=== PATIENT | female | born 1970 | race Caucasian/White ===

== ENCOUNTER 2016-12-14 18:33 | Emergency (ER) | payer MEDICAID ==
[~2016-12-14] VITALS: Ht 167.6 cm; Wt 92.5 kg
[2016-12-14 18:45] VITALS: BP 103/65
[2016-12-14 19:22] LABS: BASOPHILS # (AUTO) 0.1 K/uL (0.00-0.22); BASOPHILS % (AUTO) 1.7 % (0.0-2.0); EOSINOPHILS # (AUTO) 0.1 K/uL (0-0.4); EOSINOPHILS % (AUTO) 1.2 % (0.0-4.0); HEMATOCRIT 39.3 % (36-48); HEMOGLOBIN 13.3 g/dL (12.0-16.0); LYMPHOCYTES # (AUTO) 2.8 K/uL (2.5-16.5); MEAN CORPUSCULAR HEMOGLOBIN 31 pg (27-31); MEAN CORPUSCULAR HGB CONC 34 g/dL (33-37); MEAN CORPUSCULAR VOLUME 92 fL (80-94); MONOCYTES # (AUTO) 0.5 K/uL (0.8-1.0); MONOCYTES % (AUTO) 6.2 % (1.7-9.3); NEUTROPHILS # (AUTO) 4.9 K/uL (1.8-7.7); NEUTROPHILS % (AUTO) 56.9 % (42.2-75.2); PLATELET COUNT (AUTO) 219 K/uL (140-450); RED BLOOD CELL COUNT(AUTO) 4.28 MIL/uL (4.20-5.40); RED CELL DISTRIBUTION WIDTH 12.2 % (11.6-13.7); WHITE BLOOD COUNT (AUTO) 8.4 K/uL (4.8-10.8)
[2016-12-14 19:28] LABS: BILIRUBIN,URINE NEGATIVE (NEGATIVE); BLOOD, URINE TRACE-I (NEGATIVE); COLOR,URINE YELLOW (YELLOW); LEUKOCYTE ESTERASE ,URINE 1+ (NEGATIVE); NITRITE, URINE NEGATIVE (NEGATIVE); PH,URINE 6.5 (5.0-9.0); PROTEIN,URINE NEGATIVE (NEGATIVE); UGLUCOSE NEGATIVE (NEGATIVE); UROBILINOGEN,URINE 0.2 EU/dL (0.2 - 1)
[2016-12-14 19:30] LABS: APPEARANCE,URINE HAZY (CLEAR)
[2016-12-14 19:31] LABS: ANION GAP 10.7 (8-16); CARBON DIOXIDE 29.3 mmol/L (21-32); CREATININE 0.8 mg/dL (0.6-1.3)
--- NOTE | 2016-12-14 19:34 | NUR ---
Patient ambulated to bed 04 from Ultrasound.
[2016-12-14 19:36] LABS: ALBUMIN 3.8 g/dL (3.4-5.0); TOTAL BILIRUBIN 0.4 mg/dL (0.0-1.0); TOTAL PROTEIN, SERUM 7.3 g/dL (6.4-8.2)
[2016-12-14 19:39] LABS: RBC,URINE 0-5 (RARE) /HPF (0-5); WBC,URINE 0-5 (RARE) /HPF (0-5)
[2016-12-14 19:40] LABS: BACTERIA,URINE 1+ /HPF (None Seen); SQUAMOUS EPITHELIAL CELL,UR 4-10 (MOD) /LPF (0-3 (FEW))
[2016-12-14] MEDS ORDERED: KETOROLAC 30 MG/ML VIAL IVP ONE (20:35)
[2016-12-14] MEDS ORDERED: KETOROLAC 60 MG/2 ML VIAL IM ONE (20:40)
--- NOTE | 2016-12-14 20:42 | NUR ---
Dr. Carrizales evaluating patient at bedside.
--- NOTE | 2016-12-14 21:18 | NUR ---
Patient discharged with v/s stable. Written and verbal after care instructions given and explained. Patient alert, oriented and verbalized understanding of instructions. Ambulatory with steady gait. All questions addressed prior to discharge. ID band removed. Patient advised to follow up with PMD. Rx of ZOFRAN 4 MG, MOTRIN 600 MG given. Patient educated on indication of medication including possible reaction and side effects. Opportunity to ask questions provided and answered.
[2016-12-14 21:35] VITALS: BP 108/65
--- NOTE | 2016-12-14 21:37 | NUR ---
46Y/F PATIENT PRESENTS TO ED WITH C/O ABDOMINAL PAIN X 1 WK . PT STATES ABDOMINAL PAIN WITH N/V. NO MEDICAL HX. . DENIES N/V/D; SKIN IS PINK/WARM/DRY; AAOX4 WITH EVEN AND STEADY GAIT; LUNGS CLEAR BL; HR EVEN AND REGULAR; PT DENIES ANY FEVER, CP, SOB, OR COUGH AT THIS TIME; PATIENT STATES PAIN OF 7/10 AT THIS TIME; VSS; PATIENT POSITIONED FOR COMFORT; HOB ELEVATED; BEDRAILS UP X2; BED DOWN. ER MD MADE AWARE OF PT STATUS.
--- NOTE | 2016-12-14 21:37 | NUR ---
Note undone in EDM - 12/14/16 at 2138 by [facility] 46Y/F PATIENT PRESENTS TO ED WITH C/O ABDOMINAL PAIN X 1 WK . PT STATES ABDOMINAL PAIN WITH N/V. NO MEDICAL HX. . DENIES N/V/D; SKIN IS PINK/WARM/DRY; AAOX4 WITH EVEN AND STEADY GAIT; LUNGS CLEAR BL; HR EVEN AND REGULAR; PT DENIES ANY FEVER, CP, SOB, OR COUGH AT THIS TIME; PATIENT STATES PAIN OF 7/10 AT THIS TIME; VSS; PATIENT POSITIONED FOR COMFORT; HOB ELEVATED; BEDRAILS UP X2; BED DOWN. ER MADE AWARE OF PT STATUS.
== END 2016-12-14 21:18 | disposition home or self-care (01) ==
LOC: MED 18:33
DX: K80.70 Calculus of gallbladder and bile duct without cholecystitis without obstruction (principal)
CPT/HCPCS: 36415; 76705; 80053; 81001; 83690; 85025; 87086; 96372; 99285; J1885

== ENCOUNTER 2017-04-04 18:54 | Emergency (ER) | payer MEDICAID ==
[~2017-04-04] VITALS: Ht 167.6 cm; Wt 95.3 kg
[2017-04-04 19:22] VITALS: BP 111/52
--- NOTE | 2017-04-04 20:05 | NUR ---
PT TAKEN TO BED 2
--- NOTE | 2017-04-04 20:06 | NUR ---
PATIENT IS A 47 Y/O FEMALE WHO PRESENTS TO THE ED C/O ABD PAIN. PT STATES, "I HAVE BEEN HAVING THIS PAIN IN MY STOMACH AND CHEST AND IT HURTS." PT REPORTS 8/10 ACHING PAIN ON THE UPPER EPIGASTRIC AREA AND CHEST AREA THAT RADIATES TO THE BILATERAL ARMS. PT DENIES SOB, REPORTS NAUSEA, DENIES VOMITING/DIARRHEA. PT AAOX4, RR EVEN/UNLABORED. PT REPOSITIONED FOR COMFORT, BED IN LOWEST POSITION. ER MD DR. RODRIGUEZ NOTIFIED. WILL CONTINUE TO MONITOR.
--- NOTE | 2017-04-04 20:22 | NUR ---
Dr. Sigala evaluating patient at bedside.
[2017-04-04] MEDS ORDERED: MORPHINE SULFATE 4 MG/ML SYR IVP ONE (20:30)
[2017-04-04] MEDS ORDERED: ONDANSETRON 4 MG/2 ML VIAL IVP ONE (20:30)
[2017-04-04] MEDS ORDERED: NACL 0.9% 1,000 ML IV ONE (20:30)
[2017-04-04] MEDS ORDERED: ASPIRIN 325 MG TAB PO ONE (20:30)
--- NOTE | 2017-04-04 20:35 | NUR ---
X-Ray at bedside.
[2017-04-04 20:54] LABS: APPEARANCE,URINE CLEAR (CLEAR); BILIRUBIN,URINE NEGATIVE (NEGATIVE); BLOOD, URINE TRACE-I (NEGATIVE); COLOR,URINE YELLOW (YELLOW); LEUKOCYTE ESTERASE ,URINE NEGATIVE (NEGATIVE); NITRITE, URINE NEGATIVE (NEGATIVE); UGLUCOSE NEGATIVE (NEGATIVE)
[2017-04-04 20:54] LABS: BASOPHILS # (AUTO) 0.2 K/uL (0.00-0.22); EOSINOPHILS # (AUTO) 0.1 K/uL (0-0.4); EOSINOPHILS % (AUTO) 0.8 % (0.0-4.0); HEMATOCRIT 40.8 % (36-48); HEMOGLOBIN 13.6 g/dL (12.0-16.0); LYMPHOCYTES # (AUTO) 2.7 K/uL (2.5-16.5); LYMPHOCYTES % (AUTO) 30.1 % (20.5-51.1); MEAN CORPUSCULAR HEMOGLOBIN 31 pg (27-31); MEAN CORPUSCULAR HGB CONC 33 g/dL (33-37); MEAN CORPUSCULAR VOLUME 92 fL (80-94); MONOCYTES # (AUTO) 0.5 K/uL (0.8-1.0); MONOCYTES % (AUTO) 5.3 % (1.7-9.3); NEUTROPHILS # (AUTO) 5.4 K/uL (1.8-7.7); NEUTROPHILS % (AUTO) 61.8 % (42.2-75.2); PLATELET COUNT (AUTO) 231 K/uL (140-450); RED BLOOD CELL COUNT(AUTO) 4.45 MIL/uL (4.20-5.40); RED CELL DISTRIBUTION WIDTH 12.8 % (11.6-13.7); WHITE BLOOD COUNT (AUTO) 8.9 K/uL (4.8-10.8)
[2017-04-04 21:03] LABS: RBC,URINE 0-5 (RARE) /HPF (0-5); WBC,URINE 0-5 (RARE) /HPF (0-5)
[2017-04-04 21:04] LABS: ANION GAP 4.8 (8-16); CARBON DIOXIDE 29.3 mmol/L (21-32); CREATININE 0.7 mg/dL (0.6-1.3); POTASSIUM 3.1 mmol/L (3.5-5.1)
[2017-04-04 21:10] LABS: ALBUMIN 3.8 g/dL (3.4-5.0); TOTAL BILIRUBIN 0.3 mg/dL (0.0-1.0)
--- NOTE | 2017-04-04 21:20 | NUR ---
US AT BEDSIDE.
[2017-04-04] MEDS ORDERED: POTASSIUM CHLORIDE 20% 40 MEQ/15 ML UDC PO ONE (21:40)
[2017-04-04 22:10] VITALS: BP 121/68
--- NOTE | 2017-04-04 22:10 | NUR ---
IV removed, catheter intact and site benign. Applied folded 4x4 gauze and tape to stop bleeding.
--- NOTE | 2017-04-04 22:12 | NUR ---
Patient discharged with v/s stable. Written and verbal after care instructions given and explained. Patient verbalized understanding. Ambulatory with steady gait. All questions addressed prior to discharge. Advised to follow up with PMD.
== END 2017-04-04 22:12 | disposition home or self-care (01) ==
LOC: MED 18:54
DX: K80.20 Calculus of gallbladder without cholecystitis without obstruction (principal); E87.6 Hypokalemia; R07.89 Other chest pain; R03.0 Elevated blood-pressure reading, without diagnosis of hypertension; J45.909 Unspecified asthma, uncomplicated
CPT/HCPCS: 36415; 71010; 76700; 80053; 81001; 81025; 83690; 84484; 85025; 93005; 96361; 96374; 96375; 99285; J2270; J2405; J7030; Q0092

== ENCOUNTER 2017-08-10 11:27 | Emergency (ER) | payer MEDICAID ==
[~2017-08-10] VITALS: Ht 165.1 cm; Wt 92.5 kg
[2017-08-10 11:32] VITALS: BP 117/67
--- NOTE | 2017-08-10 11:32 | NUR ---
pt comes too er with complain of left side quadrent pain that feels better with movememnt pt states pain is 8/10 when sedentary. she has recent miscarrage with no medical follow up as reccomended back in july. pt is concerend that is what is givivng her her quadrent pain. pt denies n/v/d fever and chills and dysuria at this time.
[2017-08-10] MEDS ORDERED: KETOROLAC 60 MG/2 ML VIAL IM ONE (12:15)
--- NOTE | 2017-08-10 12:15 | NUR ---
pt taken for an ultrasound at this time
[2017-08-10 13:16] LABS: APPEARANCE,URINE CLEAR (CLEAR); BILIRUBIN,URINE NEGATIVE (NEGATIVE); BLOOD, URINE TRACE-I (NEGATIVE); COLOR,URINE YELLOW (YELLOW); LEUKOCYTE ESTERASE ,URINE NEGATIVE (NEGATIVE); NITRITE, URINE NEGATIVE (NEGATIVE); UGLUCOSE NEGATIVE (NEGATIVE)
[2017-08-10 13:42] LABS: RBC,URINE 0-5 (RARE) /HPF (0-5); WBC,URINE 0-5 (RARE) /HPF (0-5)
[2017-08-10] MEDS ORDERED: cefTRIAXone 250 MG in LIDOCAINE MPF 1% - **ER/OR** 0.9 ML IM ONE (15:35)
[2017-08-10 16:28] VITALS: BP 103/63
--- NOTE | 2017-08-10 16:28 | NUR ---
Patient discharged with v/s stable. Written and verbal after care instructions given and explained. Patient alert, oriented and verbalized understanding of instructions. Ambulatory with steady gait. All questions addressed prior to discharge. ID band removed. Patient advised to follow up with PMD. Rx of NAPROSYN DOXYCYLINE TRAMADOL given. Patient educated on indication of medication including possible reaction and side effects. Opportunity to ask questions provided and answered.
[2017-08-12 06:17] LABS: CHLAMYDIA TRACHOMATIS AMP DNA Negative (Negative)
== END 2017-08-10 16:28 | disposition home or self-care (01) ==
LOC: MED 11:27
DX: N70.91 Salpingitis, unspecified (principal); N83.201 Unspecified ovarian cyst, right side; J45.909 Unspecified asthma, uncomplicated
CPT/HCPCS: 36415; 76830; 81001; 81025; 87491; 93325; 96372; 99285; J0696; J1885; J2001

== ENCOUNTER 2017-10-11 08:45 | Emergency (ER) | payer MEDICAID ==
[~2017-10-11] VITALS: Ht 162.6 cm; Wt 92.5 kg
[2017-10-11 08:52] VITALS: BP 98/65
--- NOTE | 2017-10-11 09:05 | NUR ---
PT TO RM 8 WITH STEADY GAIT. GAVE REPORT TO JL URIBE.
--- NOTE | 2017-10-11 09:08 | NUR ---
47/F BIB FAMILY with c/o heavy vaginal bleeding since yesterday, progressively getting worse. Patient states menstruation started yesterday. Patient states changing pad [id number]. Patient also reports of dizziness, HEADACHE and 9/10 cramping pain bl lower abd. DENIES N/V/D; SKIN IS PINK/WARM/DRY; AAOX4 WITH EVEN AND STEADY GAIT; LUNGS CLEAR BL; HR EVEN AND REGULAR. PATIENT STATES PAIN OF 9/10 AT THIS TIME, PATIENT POSITIONED FOR COMFORT; HOB ELEVATED; BEDRAILS UP X2; BED DOWN. ER MD MADE AWARE OF PT STATUS.
--- NOTE | 2017-10-11 09:36 | NUR ---
LAB AT BEDSIDE.
--- NOTE | 2017-10-11 09:49 | NUR ---
US AT BEDSIDE.
[2017-10-11 10:16] LABS: BASOPHILS % (AUTO) 0.3 % (0.0-2.0); EOSINOPHILS % (AUTO) 0.4 % (0.0-4.0); HEMOGLOBIN 13.1 g/dL (12.0-16.0); LYMPHOCYTES # (AUTO) 1.5 K/uL (2.5-16.5); LYMPHOCYTES % (AUTO) 26.2 % (20.5-51.1); MEAN CORPUSCULAR HEMOGLOBIN 32 pg (27-31); MEAN CORPUSCULAR HGB CONC 34 g/dL (33-37); MEAN CORPUSCULAR VOLUME 92.4 fL (80-94); MONOCYTES # (AUTO) 0.3 K/uL (0.8-1.0); MONOCYTES % (AUTO) 5.2 % (1.7-9.3); NEUTROPHILS # (AUTO) 3.9 K/uL (1.8-7.7); NEUTROPHILS % (AUTO) 67.9 % (42.2-75.2); PLATELET COUNT (AUTO) 198 K/uL (140-450); RED BLOOD CELL COUNT(AUTO) 4.12 MIL/uL (4.20-5.40); RED CELL DISTRIBUTION WIDTH 13.3 % (11.6-13.7); WHITE BLOOD COUNT (AUTO) 5.7 K/uL (4.8-10.8)
[2017-10-11 10:25] LABS: APPEARANCE,URINE HAZY (CLEAR); BILIRUBIN,URINE NEGATIVE (NEGATIVE); BLOOD, URINE 3+ (NEGATIVE); COLOR,URINE RED (YELLOW); LEUKOCYTE ESTERASE ,URINE 2+ (NEGATIVE); NITRITE, URINE POSITIVE (NEGATIVE); PH,URINE 6.5 (5.0-9.0); UGLUCOSE NEGATIVE (NEGATIVE)
[2017-10-11 10:28] LABS: PROTHROMBIN TIME 10.3 secs (10.8-13.4)
--- NOTE | 2017-10-11 10:36 | NUR ---
Patient appears to be resting comfortably in bed. Vital Signs within normal limits. Respirations even and unlabored.WILL CONTINUE TO MONITOR.
[2017-10-11 10:40] LABS: RBC,URINE TOO NUMEROUS TO COUN /HPF (0-5)
[2017-10-11 11:52] VITALS: BP 108/54
--- NOTE | 2017-10-11 11:52 | NUR ---
Patient discharged with v/s stable. Written and verbal after care instructions given and explained. Patient alert, oriented and verbalized understanding of instructions. Ambulatory with steady gait. All questions addressed prior to discharge. ID band removed. Patient advised to follow up with PMD. Rx of TORADOL given. Patient educated on indication of medication including possible reaction and side effects. Opportunity to ask questions provided and answered.
--- NOTE | 2017-10-11 11:53 | NUR ---
NOTIFIED OF ABNORMAL URINE RESULTS---PT IS ASYMPTOMATIC FOR DYSURIA AT THIS TIME- PT WILL F/U WITH PMD / MEDIC TECHNICIAN THIS WEEK
== END 2017-10-11 11:52 | disposition home or self-care (01) ==
LOC: MED 08:45
DX: N94.6 Dysmenorrhea, unspecified (principal); J45.909 Unspecified asthma, uncomplicated
CPT/HCPCS: 36415; 76830; 81001; 81025; 84702; 85025; 85610; 85730; 86900; 86901; 87086; 99285; Q0092

== ENCOUNTER 2018-01-14 21:40 | Inpatient (IN) | payer MEDICAID ==
[~2018-01-14] VITALS: Ht 162.6 cm; Wt 94.8 kg
[2018-01-14 21:50] VITALS: BP 125/65
--- NOTE | 2018-01-14 21:50 | NUR ---
PATIENT TRIAGED; VSS; SENT TO ER LOBBY.
--- NOTE | 2018-01-14 22:59 | NUR ---
PATIENT TO ER BED 12.
--- NOTE | 2018-01-14 23:15 | NUR ---
47/F CAME IN WITH SIGNIFICANT OTHER, C/O 02/09 SUDDEN ONSET SHARP RUQ AND EPIGASTRIC PAIN, X2 HRS. PT REPORTS N/V. DENIES FEVER, DYSURIA, DIARRHEA. BS ACTIVE X4, ABD SOFT ROUND TENDER TO RUQ AND EPIGASTRIC AREA. LUNG SOUNDS CLEAR BL. AOX4, AMBULATORY, RR EVEN AND SLIGHT LABORED, IN MILD DISTRESS WITH FACIAL GRIMACING AND RESTLESSNESS. PLACED ON MONITOR. ER MD MADE AWARE. HX GALLSTONES (DX 2 YEARS AGO, LAST EPISODE 6 MONTHS AGO)
[2018-01-14] MEDS ORDERED: MORPHINE SULFATE 4 MG/ML SYR IVP ONE (23:40)
[2018-01-14] MEDS ORDERED: ONDANSETRON 4 MG/2 ML VIAL IVP ONE (23:40)
[2018-01-14] MEDS ORDERED: DICYCLOMINE HCL LIQUID 20 MG, ALUMINUM HYD/MAG/SIMETHICONE 30 ML, LIDOCAINE VISCOUS 2% ... PO ONE ×3 (23:40)
[2018-01-14] MEDS ORDERED: NACL 0.9% 1,000 ML IV ONE (23:40)
[2018-01-15 00:12] LABS: BASOPHILS % (AUTO) 0.3 % (0.0-2.0); EOSINOPHILS # (AUTO) 0.1 K/uL (0-0.4); EOSINOPHILS % (AUTO) 0.6 % (0.0-4.0); HEMATOCRIT 39.1 % (36-48); HEMOGLOBIN 13.4 g/dL (12.0-16.0); LYMPHOCYTES # (AUTO) 2.9 K/uL (2.5-16.5); LYMPHOCYTES % (AUTO) 26.4 % (20.5-51.1); MEAN CORPUSCULAR HEMOGLOBIN 31 pg (27-31); MEAN CORPUSCULAR HGB CONC 34 g/dL (33-37); MEAN CORPUSCULAR VOLUME 91.8 fL (80-94); MONOCYTES # (AUTO) 0.6 K/uL (0.8-1.0); MONOCYTES % (AUTO) 5.8 % (1.7-9.3); NEUTROPHILS # (AUTO) 7.2 K/uL (1.8-7.7); NEUTROPHILS % (AUTO) 66.9 % (42.2-75.2); PLATELET COUNT (AUTO) 217 K/uL (140-450); RED BLOOD CELL COUNT(AUTO) 4.26 MIL/uL (4.20-5.40); RED CELL DISTRIBUTION WIDTH 13.6 % (11.6-13.7); WHITE BLOOD COUNT (AUTO) 10.8 K/uL (4.8-10.8)
[2018-01-15 00:16] LABS: APPEARANCE,URINE CLEAR (CLEAR); BILIRUBIN,URINE NEGATIVE (NEGATIVE); BLOOD, URINE TRACE-I (NEGATIVE); COLOR,URINE YELLOW (YELLOW); LEUKOCYTE ESTERASE ,URINE TRACE (NEGATIVE); NITRITE, URINE NEGATIVE (NEGATIVE); PH,URINE 6.5 (5.0-9.0); UGLUCOSE NEGATIVE (NEGATIVE)
[2018-01-15 00:19] LABS: ANION GAP 10.2 (8-16); CARBON DIOXIDE 30.4 mmol/L (21-32); CREATININE 0.8 mg/dL (0.6-1.3); POTASSIUM 3.6 mmol/L (3.5-5.1)
[2018-01-15 00:27] LABS: ALBUMIN 3.7 g/dL (3.4-5.0); TOTAL BILIRUBIN 0.5 mg/dL (0.0-1.0)
[2018-01-15 00:29] LABS: RBC,URINE 0-5 (RARE) /HPF (0-5); WBC,URINE 0-5 (RARE) /HPF (0-5)
--- NOTE | 2018-01-15 01:41 | NUR ---
PT RESTING IN BED, VS NOTED, RR EVEN AND UNLABORED, REPORTS 3/10 PAIN AT THIS TIME, ALL NEEDS MET.
[2018-01-15] MEDS ORDERED: KETOROLAC 30 MG/ML VIAL IVP ONE (03:10)
--- NOTE | 2018-01-15 04:00 | NUR ---
PT RESTING IN BED, REPORTS / RUQ/EPIGASTRIC PAIN DESPITE MED. VSS. ALL NEEDS MET. ER MD MADE AWARE
[2018-01-15] MEDS ORDERED: HYDROcodone/APAP 5/325 MG 1 TAB TAB PO PRN (04:10)
[2018-01-15] MEDS ORDERED: ALBUTEROL SULFATE/IPRATROPIU 3 ML SOL IH PRN (04:10)
[2018-01-15] MEDS ORDERED: KETOROLAC 15 MG/ML VIAL IVP PRN (04:10)
[2018-01-15] MEDS ORDERED: ONDANSETRON 4 MG/2 ML VIAL IM/IVP PRN (04:10)
[2018-01-15] MEDS ORDERED: DOCUSATE SODIUM 100 MG GELCAP PO PRN (04:10)
[2018-01-15] MEDS ORDERED: ACETAMINOPHEN 325 MG TAB PO PRN (04:10)
--- NOTE | 2018-01-15 05:00 | NUR ---
Patient will be admitted to care of DR. MCALLISTER. Admited to [facility]. Will go to [id number]. Belongings list completed. Report to RONY GOMEZ AT BEDSIDE.
--- NOTE | 2018-01-15 05:05 | NUR ---
ADMITTED A 47 Y/O FEMALE WITH CHIEF COMPLAIN OF EPIGASTRIC AND R UPPER QUADRANT PAIN X 2 DAYS. PATIENT AA0X4, AMBULATORY, COOPERATIVE. DISCUSS PLAN OF CARE. SKIN INTACT .MRSA NASAL SWAB DONE. PERSONAL BELONGINGS AT PATIENT BEDSIDE CABINET. ROUTINE ADMISSION CARE DONE AND CARRY OUT ORDERS. BED IN LOW LOCKED POSITION. CALL LIGHT WITHIN REACH. ALL NEEDS ATTENDED.
[2018-01-15] MEDS: DEXT 5% /NACL 0.9% 1,000 ML IV SCH ×3 (05:20→18:25)
[2018-01-15 05:21] LABS: PROTHROMBIN TIME 9.9 secs (10.8-13.4)
[2018-01-15 05:44] LABS: BARBITURATE, URINE NEG. ng/ml (NEG <=200); BENZODIAZEPINE, URINE NEG. ng/mL (NEG <=200); CANNABINOID, URINE NEG. ng/mL (NEG <=50)
[2018-01-15 05:46] LABS: THYROID STIMULATING HORMONE 2.59 uIU/mL (0.34-3.74)
[2018-01-15 05:59] LABS: COCAINE, URINE NEG. ng/mL (NEG <=300); OPIATE, URINE NEG. ng/mL (NEG <=2000); PHENCYCLIDINE SCREEN,URINE NEG. ng/mL (NEG <=25)
--- NOTE | 2018-01-15 07:20 | NUR ---
GAVE REPORT TO AM SHIFT RN AT BEDSIDE FOR CONTINUITY OF CARE. PATIENT IN STABLE CONDITION.
--- NOTE | 2018-01-15 07:52 | NUR ---
PATIENT WAS SLEEPING COMFORTABLY, EASILY AROUSABLE ON ROOM AIR. RESPIRATION EVEN, UNLABOR ON ROOM AIR. SKIN DRY AND WARM. IV PATENT AND INTACT. COMPLAINED OF ABDOMINAL PAIN, WILL MEDICATE PER ORDER. PLAN OF CARE WAS DISCUSSED WITH PATIENT. BED AT LOW POSITION, SIDE RAILS UP. CALL LIGHT WITHIN REACH.
--- NOTE | 2018-01-15 07:54 | NUR ---
PATIENT HAS BEEN SCREENED AND CATEGORIZED MODERATE RISK. PATIENT WILL BE SEEN WITHIN 3-5 DAYS OF ADMISSION. 01/18- [address]
[2018-01-15 08:00] VITALS: BP 98/47
[2018-01-15 08:56] LABS: WHITE BLOOD COUNT (AUTO) 5.3 K/uL (4.8-10.8)
[2018-01-15 08:57] LABS: HEMATOCRIT 35.4 % (36-48); HEMOGLOBIN 11.7 g/dL (12.0-16.0); MEAN CORPUSCULAR HEMOGLOBIN 31 pg (27-31); MEAN CORPUSCULAR HGB CONC 33 g/dL (33-37); MEAN CORPUSCULAR VOLUME 93.7 fL (80-94); PLATELET COUNT (AUTO) 190 K/uL (140-450); RED BLOOD CELL COUNT(AUTO) 3.78 MIL/uL (4.20-5.40); RED CELL DISTRIBUTION WIDTH 12.6 % (11.6-13.7)
[2018-01-15 08:58] LABS: BASOPHILS % (AUTO) 0.3 % (0.0-2.0); EOSINOPHILS % (AUTO) 0.5 % (0.0-4.0); LYMPHOCYTES # (AUTO) 1.2 K/uL (2.5-16.5); LYMPHOCYTES % (AUTO) 23.2 % (20.5-51.1); MONOCYTES # (AUTO) 0.3 K/uL (0.8-1.0); MONOCYTES % (AUTO) 6.1 % (1.7-9.3); NEUTROPHILS # (AUTO) 3.8 K/uL (1.8-7.7); NEUTROPHILS % (AUTO) 69.9 % (42.2-75.2)
[2018-01-15] MEDS: LACTOBACILLUS RHAMNOSUS GG 1 EACH CAP PO SCH (09:20)
[2018-01-15 09:32] LABS: ANION GAP 8.2 (8-16); CREATININE 0.7 mg/dL (0.6-1.3); POTASSIUM 4.2 mmol/L (3.5-5.1)
[2018-01-15 09:36] LABS: PROTHROMBIN TIME 9.6 secs (10.8-13.4)
[2018-01-15 09:38] LABS: CHOL/HDL RATIO 4.5 (1-4.5); MAGNESIUM 2.1 mg/dL (1.8-2.4); PHOSPHORUS 3.1 mg/dL (2.5-4.9)
--- NOTE | 2018-01-15 10:07 | NUR ---
PATIENT AWAKE, ALERT. RESPIRATION EVEN, UNLABOR ON ROOM AIR. NO DISTRESS NOTED AT THIS TIME. CALL LIGHT WITHIN REACH.
--- NOTE | 2018-01-15 11:38 | NUR ---
PATIENT AWAKE, ALERT. RESPIRATION EVEN, UNLABOR ON ROOM AIR. NO DISTRESS NOTED. FAMILY AT BEDSIDE. CALL LIGHT WITHIN REACH
--- NOTE | 2018-01-15 12:45 | NUR ---
PATIENT AWAKE, ALERT. RESPIRATION EVEN, UNLABOR ON ROOM AIR. NO DISTRESS NOTED. FAMILY AT BEDSIDE. CALL LIGHT WITHIN REACH
[2018-01-15] MEDS ORDERED: MORPHINE SULFATE 2 MG/ML SYR IVP PRN (13:40)
--- NOTE | 2018-01-15 14:52 | NUR ---
PATIENT IS AWAKE, ALERT. RESPIRATION EVEN, UNLABOR ON ROOM AIR. NO DISTRESS NOTED AT THIS TIME. FAMILY AT BEDSIDE. CALL LIGHT WITHIN REACH
--- NOTE | 2018-01-15 15:18 | NUR ---
PATIENT IS BEING TRANSFERRED TO [facility] FOR HIDA SCAN. PATIENT IS STABLE AT THIS TIME.
[2018-01-15 16:53] VITALS: BP 94/43
--- NOTE | 2018-01-15 18:15 | NUR ---
PATIENT AWAKE, ALERT. RESPIRATION EVEN, UNLABOR ON ROOM AIR. NO DISTRESS NOTED AT THIS TIME. FAMILY AT BEDSIDE. CALL LIGHT WITHIN REACH
--- NOTE | 2018-01-15 19:16 | NUR ---
ENDORSEMENT GIVEN TO THE STUDENT LIFE VICE PRESIDENT NURSE. PATIENT IS STABLE AT THIS TIME
--- NOTE | 2018-01-15 19:17 | NUR ---
RECEIVED REPORT FROM DAY SHIFT NURSE CECY-RN AT BEDSIDE. PT RESTING IN BED, ON ROOM AIR WITH LEFT AC 18G. DISCUSSED PLAN OF CARE AND PT VERBALIZED UNDERSTANDING. NO S/S OF RESPIRATORY DISTRESS OR DISCOMFORT NOTED AT THIS TIME. BED IN LOWEST POSITION, BED BREAKS ON AND BOTH SIDE RAILS UP. BEDSIDE TABLE AND CALL LIGHT ARE WITHIN REACH. WILL CONTINUE TO MONITOR.
[2018-01-15 20:00] VITALS: BP 94/30
--- NOTE | 2018-01-15 20:00 | NUR ---
VITAL SIGNS TAKEN AND TOLERATED WELL. NO S/S OF RESPIRATORY DISTRESS OR DISCOMFORT NOTED AT THIS TIME. WILL CONTINUE TO MONITOR.
--- NOTE | 2018-01-15 22:00 | NUR ---
PT SLEEPING IN BED. NO S/S OF RESPIRATORY DISTRESS OR DISCOMFORT NOTED AT THIS TIME. WILL CONTINUE TO MONITOR.
--- NOTE | 2018-01-16 | NUR ---
VITAL SIGNS TAKEN AND TOLERATED WELL. NO S/S OF RESPIRATORY DISTRESS OR DISCOMFORT NOTED AT THIS TIME. REMINDED PT THAT SHE IS CURRENTLY ON NPO DIET AND CANNOT EAT OR DRINK FOR SCHEDULED PROCEDURE. PT VERBALIZED UNDERSTANDING. WILL CONTINUE TO MONITOR.
[2018-01-16] MEDS: DEXT 5% /NACL 0.9% 1,000 ML IV SCH ×2 (00:48→08:58)
--- NOTE | 2018-01-16 02:00 | NUR ---
PT CONTINUES TO SLEEP. NO S/S OF RESPIRATORY DISTRESS OR DISCOMFORT NOTED AT THIS TIME. WILL CONTINUE TO MONITOR.
--- NOTE | 2018-01-16 04:00 | NUR ---
PT CONTINUES TO SLEEP. NO S/S OF RESPIRATORY DISTRESS OR DISCOMFORT NOTED AT THIS TIME. WILL CONTINUE TO MONITOR.
--- NOTE | 2018-01-16 06:00 | NUR ---
PT CONTINUES TO SLEEP IN BED. NO S/S OF RESPIRATORY DISTRESS OR DISCOMFORT NOTED AT THIS TIME. WILL CONTINUE TO MONITOR.
[2018-01-16 06:45] LABS: BASOPHILS % (AUTO) 0.2 % (0.0-2.0); EOSINOPHILS # (AUTO) 0.1 K/uL (0-0.4); HEMATOCRIT 35.6 % (36-48); HEMOGLOBIN 12.1 g/dL (12.0-16.0); LYMPHOCYTES # (AUTO) 1.7 K/uL (2.5-16.5); LYMPHOCYTES % (AUTO) 31.9 % (20.5-51.1); MEAN CORPUSCULAR HEMOGLOBIN 31 pg (27-31); MEAN CORPUSCULAR HGB CONC 34 g/dL (33-37); MEAN CORPUSCULAR VOLUME 92.5 fL (80-94); MONOCYTES # (AUTO) 0.3 K/uL (0.8-1.0); NEUTROPHILS # (AUTO) 3.2 K/uL (1.8-7.7); NEUTROPHILS % (AUTO) 60.9 % (42.2-75.2); PLATELET COUNT (AUTO) 156 K/uL (140-450); RED BLOOD CELL COUNT(AUTO) 3.85 MIL/uL (4.20-5.40); RED CELL DISTRIBUTION WIDTH 13.6 % (11.6-13.7); WHITE BLOOD COUNT (AUTO) 5.2 K/uL (4.8-10.8)
--- NOTE | 2018-01-16 07:14 | NUR ---
ENDORSED PT CARE TO DAY SHIFT NURSE BRIAN FOR CONTINUITY OF CARE.
[2018-01-16 07:32] LABS: ANION GAP 7.4 (8-16); CARBON DIOXIDE 29.4 mmol/L (21-32); CREATININE 0.7 mg/dL (0.6-1.3); POTASSIUM 3.8 mmol/L (3.5-5.1)
--- NOTE | 2018-01-16 07:50 | NUR ---
PATIENT AWAKE, ALERT. RESPIRATION EVEN, UNLABOR ON ROOM AIR. SKIN DRY AND WARM. DENIED PAIN, N.V AT THIS TIME. IV PATENT AND INTACT. PLAN OF CARE WAS DISCUSSED WITH PATIENT. BED AT LOW POSITION, SIDE RAILS UP. CALL LIGHT WITHIN REACH.
[2018-01-16 08:00] VITALS: BP 98/47
[2018-01-16] MEDS: LACTOBACILLUS RHAMNOSUS GG 1 EACH CAP PO SCH (08:57)
--- NOTE | 2018-01-16 09:45 | NUR ---
PATIENT AWAKE, ALERT. RESPIRATION EVEN, UNLABOR ON ROOM AIR. NO DISTRESS NOTED AT THIS TIME. CALL LIGHT WITHIN REACH
[2018-01-16] MEDS ORDERED: ALUMINUM HYD/MAG/SIMETHICONE 30 ML UDC PO SCH ×2 (10:00→18:00)
[2018-01-16] MEDS ORDERED: ACET-9525 PO (10:11)
[2018-01-16] MEDS ORDERED: MAA30 PO (10:11)
[2018-01-16] MEDS ORDERED: FAMO-90 PO (11:55)
--- NOTE | 2018-01-16 12:45 | NUR ---
DISCHARGE INSTRUCTION AND PRESCRIPTION WERE GIVEN AND EXPLAINED TO THE PATIENT. PATIENT VERBALIZED UNDERSTANDING. IV WAS REMOVED, CATHETER INTACT, NO ACTIVE BLEEDING SEEN. ID BAND WAS REMOVED. PATIENT WAS ESCORTED OUT BY STAFF. ALL BELONGINGS WERE TAKEN WITH THE PATIENT. PATIENT IS STABLE AT THIS TIME
== END 2018-01-16 12:45 | disposition home or self-care (01) ==
LOC: MED 21:40 → MTU 01-15 04:07
PROVIDERS: ADMIT Family Medicine; ATTEND Family Medicine
DX: K80.70 Calculus of gallbladder and bile duct without cholecystitis without obstruction (principal); E66.9 Obesity, unspecified; R31.9 Hematuria, unspecified; R74.0 Nonspecific elevation of levels of transaminase and lactic acid dehydrogenase [LDH]; J45.909 Unspecified asthma, uncomplicated; Z83.3 Family history of diabetes mellitus; Z68.36 Body mass index [BMI] 36.0-36.9, adult
CPT/HCPCS: 36415; 71045; 76705; 78445; 80048; 80053; 80305; 81001; 81025; 82150; 83036; 83690; 83735; 83880; 84100; 84443; 85025; 85610; 85730; 87081; 87086; 96361; 96365; 96368; 96374; 96375; 99285; A9510; J0696; J1885; J2270; J2405; J7042; J7060; Q0092

== ENCOUNTER 2018-10-09 22:42 | Emergency (ER) | payer MEDICAID ==
[~2018-10-09] VITALS: Ht 160 cm; Wt 98.4 kg
[~2018-10-09 22:42] MED LIST: ACET-9525 PO; FAMO-90 PO; MAA30 PO
[2018-10-09 22:45] VITALS: BP 95/53
--- NOTE | 2018-10-09 22:54 | NUR ---
PT AMBULATED TO ER BED 04
--- NOTE | 2018-10-09 23:01 | NUR ---
PT TO ED WITH C/O RECTAL PAIN AND BLEEDING. PT DENIES ANY TRAUMA OR INJURY TO AREA. BLEEDING CONTROLLED. PT PLACED INTO BED, PENDING MD STEWARD.
--- NOTE | 2018-10-09 23:13 | NUR ---
DR. RODRIGUEZ EVALUATING PT
[2018-10-09 23:25] VITALS: BP 95/53
--- NOTE | 2018-10-09 23:25 | NUR ---
Patient discharged with v/s stable. Written and verbal after care instructions given and explained. Patient alert, oriented and verbalized understanding of instructions. Ambulatory with steady gait. All questions addressed prior to discharge. ID band removed. Patient advised to follow up with PMD. Rx of MIRALAX AND HYDROCORTISONE ACETATE given. Patient educated on indication of medication including possible reaction and side effects. Opportunity to ask questions provided and answered.
== END 2018-10-09 23:25 | disposition home or self-care (01) ==
LOC: MED 22:42
DX: K64.9 Unspecified hemorrhoids (principal); K59.00 Constipation, unspecified; J45.909 Unspecified asthma, uncomplicated; Z79.899 Other long term (current) drug therapy
CPT/HCPCS: 99282

== ENCOUNTER 2018-12-26 10:19 | Emergency (ER) | payer MEDICAID ==
[~2018-12-26] VITALS: Ht 165.1 cm; Wt 96.3 kg
[2018-12-26 10:35] VITALS: BP 119/74
--- NOTE | 2018-12-26 10:41 | NUR ---
PT AMBULATED TO LOBBY AT THIS TIME, VSS
--- NOTE | 2018-12-26 11:06 | NUR ---
PT TO ER BED 4
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
--- NOTE | 2018-12-26 11:22 | NUR ---
DR BOSTON AT BEDSIDE FOR PT EVALUATION
[2018-12-26] MEDS ORDERED: KETOROLAC 60 MG/2 ML VIAL IM ONE (11:25)
[2018-12-26 13:06] VITALS: BP 116/72
== END 2018-12-26 13:06 | disposition home or self-care (01) ==
LOC: MED 10:19
DX: S20.219A Contusion of unspecified front wall of thorax, initial encounter (principal); S16.1XXA Strain of muscle, fascia and tendon at neck level, initial encounter; J45.909 Unspecified asthma, uncomplicated; Z79.899 Other long term (current) drug therapy; V89.2XXA Person injured in unspecified motor-vehicle accident, traffic, initial encounter; Y93.89 Activity, other specified; Y92.89 Other specified places as the place of occurrence of the external cause; Y99.8 Other external cause status
CPT/HCPCS: 71045; 72040; 96372; 99283; J1885

== ENCOUNTER 2020-09-22 13:26 | Emergency (ER) | payer MEDICAID ==
[~2020-09-22] VITALS: Ht 165.1 cm; Wt 99.4 kg
[2020-09-22 13:31] VITALS: BP 119/54
[2020-09-22] MEDS ORDERED: KETOROLAC 30 MG/ML VIAL IM ONE (13:50)
[2020-09-22] MEDS ORDERED: NAPR-1704 PO (15:35)
[2020-09-22] MEDS ORDERED: DICL1GEL19 TP (15:35)
[2020-09-22 15:46] VITALS: BP 110/50
== END 2020-09-22 15:46 | disposition home or self-care (01) ==
LOC: MED 13:26
DX: M99.73 Connective tissue and disc stenosis of intervertebral foramina of lumbar region (principal); M54.16 Radiculopathy, lumbar region; J45.909 Unspecified asthma, uncomplicated; Z79.899 Other long term (current) drug therapy
CPT/HCPCS: 72100; 73502; 81002; 81025; 96372; 99283; J1885

== ENCOUNTER 2021-06-15 03:23 | Emergency (ER) | payer MEDICAID ==
[~2021-06-15] VITALS: Ht 167.6 cm; Wt 101.3 kg
[~2021-06-15 03:23] MED LIST changes: +DICL1GEL19 TP; +NAPR-1704 PO
[2021-06-15 03:29] VITALS: BP 117/63
--- NOTE | 2021-06-15 03:31 | NUR ---
Dr. Carr at triage to exam patient.
--- NOTE | 2021-06-15 03:47 | NUR ---
pt taken to bed 07.
--- NOTE | 2021-06-15 03:50 | NUR ---
Patient BIB by family from home. C/O chest pain x 4 days. Patient reported, had left chest pain, stabbing , radiate to left arm, numbness, denies Hx heart problems.
--- NOTE | 2021-06-15 03:52 | NUR ---
CXR at bedside.
--- NOTE | 2021-06-15 04:00 | NUR ---
Blood for labwork drawn from right arm per project specialist. Patient tolerated well.
[2021-06-15 04:35] LABS: ALBUMIN 3.6 g/dL (3.4-5.0); ANION GAP 12.8 (8-16); CARBON DIOXIDE 26.8 mmol/L (21-32); POTASSIUM 3.6 mmol/L (3.5-5.1); TOTAL BILIRUBIN 0.3 mg/dL (0.0-1.0)
[2021-06-15 04:54] LABS: BASOPHILS % (AUTO) 0.3 % (0.0-2.0); EOSINOPHILS # (AUTO) 0.1 K/uL (0-0.4); EOSINOPHILS % (AUTO) 1.4 % (0.0-4.0); HEMATOCRIT 36.8 % (36-48); HEMOGLOBIN 12.8 g/dL (12.0-16.0); LYMPHOCYTES # (AUTO) 2.9 K/uL (2.5-16.5); LYMPHOCYTES % (AUTO) 47.5 % (20.5-51.1); MEAN CORPUSCULAR HEMOGLOBIN 32 pg (27-31); MEAN CORPUSCULAR HGB CONC 35 g/dL (33-37); MEAN CORPUSCULAR VOLUME 91.1 fL (80-94); MONOCYTES # (AUTO) 0.5 K/uL (0.8-1.0); MONOCYTES % (AUTO) 7.9 % (1.7-9.3); NEUTROPHILS # (AUTO) 2.6 K/uL (1.8-7.7); NEUTROPHILS % (AUTO) 42.9 % (42.2-75.2); PLATELET COUNT (AUTO) 230 K/uL (140-450); RED BLOOD CELL COUNT(AUTO) 4.04 MIL/uL (4.20-5.40); RED CELL DISTRIBUTION WIDTH 13.3 % (11.6-13.7); WHITE BLOOD COUNT (AUTO) 6.1 K/uL (4.8-10.8)
[2021-06-15] MEDS ORDERED: KETOROLAC 30 MG/ML VIAL IVP ONE (05:10)
[2021-06-15] MEDS ORDERED: KETOROLAC 30 MG/ML VIAL IM ONE (05:20)
--- NOTE | 2021-06-15 05:41 | NUR ---
Dr. Carr at bedside to explain results and treatment plans.
[2021-06-15] MEDS ORDERED: NAPR-1704 PO (05:48)
[2021-06-15 06:07] VITALS: BP 117/63
== END 2021-06-15 06:07 | disposition home or self-care (01) ==
LOC: MED 03:23
DX: R07.89 Other chest pain (principal); J45.909 Unspecified asthma, uncomplicated; Z79.899 Other long term (current) drug therapy
CPT/HCPCS: 36415; 71045; 80053; 81025; 84484; 85025; 93005; 96372; 99285; J1885; Q0092

== ENCOUNTER 2022-01-05 15:04 | Emergency (ER) | payer MEDICAID ==
[~2022-01-05] VITALS: Ht 165.1 cm; Wt 99.8 kg
[2022-01-05 15:12] VITALS: BP 122/78
[2022-01-05] MEDS ORDERED: KETOROLAC 30 MG/ML VIAL IM ONE (16:20)
--- NOTE | 2022-01-05 17:05 | NUR ---
51 y/o female bib self for low back pain that radiates to left hip and leg for 1 year, worsened after 8 months. denies any new trauma, overexertion, or fall recently. pt has recently seen a chiropractor and has had no relief after a week. denies any dysuria, hematuria, n/v/d, cough, sob, cp, sore throat, fevers. states pain feels sharp, 9/10. a&ox4, zimbabwean speaking, ambulatory with steady gait. pmh: asthma nka
[2022-01-05] MEDS ORDERED: NAPR-54 PO (18:08)
[2022-01-05] MEDS ORDERED: CYCL-711 PO (18:08)
[2022-01-05] MEDS ORDERED: LID5T TP (18:08)
[2022-01-05 18:24] VITALS: BP 122/78
--- NOTE | 2022-01-05 18:26 | NUR ---
Patient discharged with v/s stable. Written and verbal after care instructions given and explained. Patient alert, oriented and verbalized understanding of instructions. Ambulatory with steady gait. All questions addressed prior to discharge. ID band removed. Patient advised to follow up with PMD. Rx of lidocaine, cyclobenzaprine, naproxen (sent) given. Patient educated on indication of medication including possible reaction and side effects. Opportunity to ask questions provided and answered. imaging copy given
== END 2022-01-05 18:24 | disposition home or self-care (01) ==
LOC: MED 15:04
DX: S39.012A Strain of muscle, fascia and tendon of lower back, initial encounter (principal); R03.0 Elevated blood-pressure reading, without diagnosis of hypertension; J45.909 Unspecified asthma, uncomplicated; Z79.899 Other long term (current) drug therapy; X58.XXXA Exposure to other specified factors, initial encounter; Y93.89 Activity, other specified; Y92.89 Other specified places as the place of occurrence of the external cause; Y99.8 Other external cause status
CPT/HCPCS: 72100; 81002; 81025; 96372; 99283; J1885

== ENCOUNTER 2022-09-01 15:01 | Emergency (ER) | payer MEDICAID ==
[~2022-09-01] VITALS: Ht 165.1 cm; Wt 99.8 kg
[~2022-09-01 15:01] MED LIST changes: +CYCL-711 PO; +LID5T TP; +NAPR-54 PO
[2022-09-01 15:08] VITALS: BP 115/72
[2022-09-01] MEDS ORDERED: HYDROcodone/APAP 10/325 MG 1 TAB TAB PO STA (15:16)
--- NOTE | 2022-09-01 15:38 | NUR ---
PT W/C TO BED 4
--- NOTE | 2022-09-01 16:00 | NUR ---
52YO FEMALE PT BIB DAUGHTER C/O HEAD PAIN X1HR. PRESENTS WITH LAC ON BACK OF HEAD , NO ACTIVE BLEEDING. STATES HITTING HEAD AGAINST CORNER OF CABNET DOOR. DENIES DIZZINESS, VISION CHANGE, N/V OR TAKING MEDICATION. PT AAOX4, HOB POSITIONED PER COMFORT. HX:DENIES NKA
[2022-09-01] MEDS ORDERED: ACETAMINOPHEN EXTRA STRENGTH 500 MG TAB PO ONE (16:05)
[2022-09-01] MEDS ORDERED: IBUP-2213 PO (16:56)
[2022-09-01] MEDS ORDERED: ACET-9800 PO (16:56)
[2022-09-01 17:09] VITALS: BP 120/72
--- NOTE | 2022-09-01 17:09 | NUR ---
Patient discharged with v/s stable. Written and verbal after care instructions FOR HEAD INJURY AND NON SUTURED LAC given and explained. Patient alert, oriented and verbalized understanding of instructions. Ambulatory with steady gait. All questions addressed prior to discharge. ID band removed. Patient advised to follow up with PMD. Rx of TYLENOL XTRA STRENGTH AND IBUOPROFEN given. Opportunity to ask questions provided and answered.
--- NOTE | 2022-09-01 17:24 | NUR ---
The patient's care was reviewed and supervised by Ana Howard RN.
== END 2022-09-01 17:09 | disposition home or self-care (01) ==
LOC: MED 15:01
DX: S01.01XA Laceration without foreign body of scalp, initial encounter (principal); J45.909 Unspecified asthma, uncomplicated; E11.9 Type 2 diabetes mellitus without complications; Z79.4 Long term (current) use of insulin; Z79.899 Other long term (current) drug therapy; W22.8XXA Striking against or struck by other objects, initial encounter; Y93.89 Activity, other specified; Y92.89 Other specified places as the place of occurrence of the external cause; Y99.8 Other external cause status
CPT/HCPCS: 99282

== ENCOUNTER 2023-01-15 14:13 | Emergency (ER) | payer MEDICAID ==
[~2023-01-15] VITALS: Ht 167.6 cm; Wt 99.8 kg
[~2023-01-15 14:13] MED LIST changes: +ACET-9800 PO; +IBUP-2213 PO
[2023-01-15 14:25] VITALS: BP 106/65; PULSE 73; RESP 18; TEMP 98.4; O2SAT 99
[2023-01-15] MEDS ORDERED: KETOROLAC 30 MG/ML VIAL IM ONE (14:45)
[2023-01-15] MEDS ORDERED: IBUP-2213 PO (15:27)
[2023-01-15] MEDS ORDERED: ACET-10509 PO (15:27)
== END 2023-01-15 15:50 | disposition home or self-care (01) ==
LOC: MED 14:13
DX: M72.2 Plantar fascial fibromatosis (principal); J45.909 Unspecified asthma, uncomplicated; E11.9 Type 2 diabetes mellitus without complications; Z79.899 Other long term (current) drug therapy
CPT/HCPCS: 73630; 96372; 99283; J1885

== ENCOUNTER 2023-01-25 05:15 | Emergency (ER) | payer MEDICAID ==
[~2023-01-25] VITALS: Ht 165.1 cm; Wt 127.0 kg
[~2023-01-25 05:15] MED LIST changes: +ACET-10509 PO
[2023-01-25 05:18] VITALS: BP 129/66; PULSE 78; RESP 17; TEMP 98; O2SAT 98
[2023-01-25] MEDS ORDERED: ASPIRIN 325 MG TAB PO ONE (05:45)
[2023-01-25 06:34] LABS: BASOPHILS % (AUTO) 0.4 % (0.0-2.0); EOSINOPHILS # (AUTO) 0.1 K/uL (0-0.4); EOSINOPHILS % (AUTO) 0.8 % (0.0-4.0); HEMATOCRIT 37.5 % (36-48); LYMPHOCYTES # (AUTO) 1.9 K/uL (2.5-16.5); LYMPHOCYTES % (AUTO) 31.6 % (20.5-51.1); MEAN CORPUSCULAR HEMOGLOBIN 31 pg (27-31); MEAN CORPUSCULAR HGB CONC 35 g/dL (33-37); MEAN CORPUSCULAR VOLUME 89.1 fL (80-94); MONOCYTES # (AUTO) 0.5 K/uL (0.8-1.0); MONOCYTES % (AUTO) 7.9 % (1.7-9.3); NEUTROPHILS # (AUTO) 3.6 K/uL (1.8-7.7); NEUTROPHILS % (AUTO) 59.3 % (42.2-75.2); PLATELET COUNT (AUTO) 197 K/uL (140-450); RED BLOOD CELL COUNT(AUTO) 4.21 MIL/uL (4.20-5.40); RED CELL DISTRIBUTION WIDTH 13.4 % (11.6-13.7)
[2023-01-25 06:54] LABS: ALANINE AMINOTRANSFERASE 31 U/L (12-78); ALBUMIN 3.5 g/dL (3.4-5.0); ALKALINE PHOSPHATASE 86 U/L (50-136); ANION GAP 12.2 (8-16); ASPARTATE AMINOTRANSFERASE 14 U/L (15-37); CALCIUM 9.4 mg/dL (8.5-10.1); CARBON DIOXIDE 25.2 mmol/L (21-32); CHLORIDE 106 mmol/L (98-107); CREATININE 0.7 mg/dL (0.6-1.3); GFR ARICAN-AMERICAN 113 mL/min (>90); GFR NON ARICAN-AMERICAN 94 mL/min (>90); GLUCOSE 152 mg/dL (74-106); LIPASE 120 U/L (73-393); POTASSIUM 3.4 mmol/L (3.5-5.1); SODIUM SERUM 140 mmol/L (136-145); TOTAL BILIRUBIN 0.3 mg/dL (0.0-1.0); UREA NITROGEN, BLOOD 14 mg/dL (7-18)
[2023-01-25] MEDS ORDERED: ACET-10509 PO (07:09)
[2023-01-25] MEDS ORDERED: IBUP-2218 PO (07:09)
[2023-01-25 07:38] VITALS: BP 100/47; PULSE 68; RESP 16; TEMP 98; O2SAT 97
== END 2023-01-25 07:40 | disposition home or self-care (01) ==
LOC: MED 05:15
DX: R07.89 Other chest pain (principal); J45.909 Unspecified asthma, uncomplicated; E11.9 Type 2 diabetes mellitus without complications; Z79.899 Other long term (current) drug therapy
CPT/HCPCS: 36415; 71045; 80053; 83690; 84484; 85025; 85379; 93005; 99285; Q0092

== ENCOUNTER 2023-05-08 14:59 | Emergency (ER) | payer MEDICAID, OTHER ==
[~2023-05-08] VITALS: Ht 167.6 cm; Wt 72.6 kg
[~2023-05-08 14:59] MED LIST changes: +IBUP-2218 PO
[2023-05-08 15:48] VITALS: BP 118/77; PULSE 65; RESP 18; TEMP 97; O2SAT 98
== END 2023-05-08 19:51 | disposition home or self-care (01) ==
LOC: MED 14:59
DX: S09.90XA Unspecified injury of head, initial encounter (principal); F07.81 Postconcussional syndrome; J45.909 Unspecified asthma, uncomplicated; E11.9 Type 2 diabetes mellitus without complications; Z79.899 Other long term (current) drug therapy; Z79.1 Long term (current) use of non-steroidal anti-inflammatories (NSAID); W22.8XXA Striking against or struck by other objects, initial encounter; Y92.89 Other specified places as the place of occurrence of the external cause; Y93.89 Activity, other specified; Y99.8 Other external cause status
CPT/HCPCS: 70450; 99284

== ENCOUNTER 2023-09-04 15:15 | Emergency (ER) | payer OTHER ==
[~2023-09-04] VITALS: Ht 162.6 cm; Wt 99.3 kg
[~2023-09-04 15:15] MED LIST changes: +NAPR-337 PO; -NAPR-54 PO
[2023-09-04 15:18] VITALS: BP 94/50; PULSE 71; RESP 16; TEMP 98.1; O2SAT 98
[2023-09-04] MEDS ORDERED: CEPH-588 PO (15:43)
[2023-09-04] MEDS: KETOROLAC 30 MG/ML VIAL IM ONE (16:06)
== END 2023-09-04 16:23 | disposition home or self-care (01) ==
LOC: MED 15:15
DX: M79.674 Pain in right toe(s) (principal); M79.675 Pain in left toe(s); J45.909 Unspecified asthma, uncomplicated; E11.9 Type 2 diabetes mellitus without complications; Z79.4 Long term (current) use of insulin; Z79.899 Other long term (current) drug therapy
CPT/HCPCS: 96372; 99283; J1885

== ENCOUNTER 2023-10-06 14:35 | Emergency (ER) | payer OTHER ==
[~2023-10-06] VITALS: Ht 167.6 cm; Wt 90.7 kg
[~2023-10-06 14:35] MED LIST changes: +CEPH-588 PO
[2023-10-06 14:52] VITALS: BP 114/79; PULSE 59; RESP 18; TEMP 97.2; O2SAT 96
[2023-10-06] MEDS ORDERED: CEPH500C16 PO (15:54)
== END 2023-10-06 16:12 | disposition home or self-care (01) ==
LOC: MED 14:35
DX: S60.456A Superficial foreign body of right little finger, initial encounter (principal); M79.5 Residual foreign body in soft tissue; J45.909 Unspecified asthma, uncomplicated; E11.9 Type 2 diabetes mellitus without complications; Z79.1 Long term (current) use of non-steroidal anti-inflammatories (NSAID); Z79.899 Other long term (current) drug therapy; X58.XXXA Exposure to other specified factors, initial encounter; Y93.89 Activity, other specified; Y92.89 Other specified places as the place of occurrence of the external cause; Y99.8 Other external cause status
CPT/HCPCS: 73140; 90471; 90715; 99284

== ENCOUNTER 2023-12-21 16:57 | Emergency (ER) | payer OTHER ==
[~2023-12-21] VITALS: Ht 162.6 cm; Wt 98.1 kg
[~2023-12-21 16:57] MED LIST changes: -ACET-10509 PO; +ACET500T99 PO; +CEPH500C16 PO
[2023-12-21 17:35] VITALS: BP 98/54; PULSE 63; RESP 18; TEMP 97.7; O2SAT 99
[2023-12-21] MEDS: KETOROLAC 30 MG/ML VIAL IM ONE (18:44)
[2023-12-21] MEDS: ALBUTEROL SULFATE/IPRATROPIU 3 ML SOL IH ONE (19:04)
[2023-12-21 19:05] VITALS: PULSE 60; RESP 16; O2SAT 100
[2023-12-21] MEDS ORDERED: IBUP-2213 PO (20:33)
[2023-12-21] MEDS ORDERED: ALBU0.0912 INH (20:33)
[2023-12-21 20:37] VITALS: BP 96/60; PULSE 62; RESP 16; TEMP 98; O2SAT 100
== END 2023-12-21 20:48 | disposition home or self-care (01) ==
LOC: MED 16:57
DX: I95.9 Hypotension, unspecified (principal); M25.512 Pain in left shoulder; R07.9 Chest pain, unspecified; J45.901 Unspecified asthma with (acute) exacerbation; E11.9 Type 2 diabetes mellitus without complications; Z79.899 Other long term (current) drug therapy
CPT/HCPCS: 71045; 73030; 81025; 93005; 94640; 96372; 99284; J1885

== ENCOUNTER 2024-01-16 14:59 | Emergency (ER) | payer OTHER ==
[~2024-01-16] VITALS: Ht 162.6 cm; Wt 99.8 kg
[~2024-01-16 14:59] MED LIST changes: +ALBU0.0912 INH
[2024-01-16 15:10] VITALS: BP 97/54; PULSE 63; RESP 20; TEMP 97.3; O2SAT 96
[2024-01-16 16:09] LABS: APPEARANCE,URINE CLEAR (CLEAR); BILIRUBIN,URINE NEGATIVE (NEGATIVE); BLOOD, URINE TRACE-I (NEGATIVE); COLOR,URINE YELLOW (YELLOW); LEUKOCYTE ESTERASE ,URINE NEGATIVE (NEGATIVE); NITRITE, URINE NEGATIVE (NEGATIVE); PH,URINE 6.5 (5.0-9.0); PROTEIN,URINE NEGATIVE (NEGATIVE); UGLUCOSE NEGATIVE (NEGATIVE)
[2024-01-16] MEDS: ALBUTEROL SULFATE/IPRATROPIU 3 ML SOL IH ONE (16:09)
[2024-01-16 16:11] VITALS: PULSE 68; RESP 20; O2SAT 99
[2024-01-16 16:18] LABS: BACTERIA,URINE 1+ /HPF (None Seen); MUCUS,URINE 1+ /LPF (None Seen); SQUAMOUS EPITHELIAL CELL,UR 0-3 (FEW) /LPF (0-3 (FEW)); WBC,URINE 0-5 /HPF (0-5)
[2024-01-16] MEDS ORDERED: PRED20TA5 PO (16:45)
[2024-01-16] MEDS ORDERED: AZIT250T4 PO (16:45)
[2024-01-16 16:50] VITALS: PULSE 94; RESP 20; O2SAT 94
[2024-01-16] MEDS: predniSONE 20 MG TAB PO ONE (17:05)
[2024-01-16] MEDS: AZITHROMYCIN 250 MG TAB PO ONE (17:11)
[2024-01-16] MEDS: predniSONE 20 MG TAB ONE (17:24)
[2024-01-16 17:54] LABS: FLU A ANTIGEN negative (NEGATIVE); FLU B ANTIGEN NEGATIVE (NEGATIVE)
[2024-01-17] MEDS ORDERED: ALBU0.0912 INH (07:07)
== END 2024-01-16 17:19 | disposition home or self-care (01) ==
LOC: MED 14:59
DX: J45.901 Unspecified asthma with (acute) exacerbation (principal); J06.9 Acute upper respiratory infection, unspecified; B97.89 Other viral agents as the cause of diseases classified elsewhere; Z20.822 Contact with and (suspected) exposure to COVID-19; E11.9 Type 2 diabetes mellitus without complications; Z79.899 Other long term (current) drug therapy
CPT/HCPCS: 71046; 81001; 87426; 87804; 94640; 99284; J7512